=== PATIENT | male | born 1950 | race Caucasian/White ===

== ENCOUNTER 2018-10-27 11:52 | Emergency (ER) | payer MEDICARE ==
[2018-10-27] MEDS ORDERED: SODIUM CHLORIDE 0.9% 1000ML 1,000 ML IVS ONE (12:24)
--- NOTE | 2018-10-27 12:27 | ED.PDOC ---
History of Present Illness - General Chief Complaint: Neuro Symptoms/Deficits Stated Complaint: "rotten feeling" Time Seen by Provider: 10/27/18 12:13 Source: patient Exam Limitations: no limitations - History of Present Illness Initial Comments: pt has had dizziness today and 3 days ago. [place] well yesterday. Pt denies recent illness, SOB, Cough, Chest pain, or N/V. denies vertigo or syncope Timing/Duration: 4-6 hours Severity: severe Improving Factors: rest Worsening Factors: movement Associated Symptoms: weakness Allergies/Adverse Reactions: Allergies Amoxicillin [From Augmentin] Allergy (Verified 10/27/18 12:02) Clavulanic Acid [From Augmentin] Allergy (Verified 10/27/18 12:02) Review of Systems - Review of Systems Constitutional: States: diaphoresis, weakness. Denies: fever EENTM: States: no symptoms reported Respiratory: Denies: cough, orthopnea, short of breath Cardiology: Denies: chest pain, edema, syncope Gastrointestinal/Abdominal: Denies: abdominal pain, diarrhea, nausea, vomiting Genitourinary: States: no symptoms reported Musculoskeletal: States: no symptoms reported Skin: States: no symptoms reported Neurological: States: weakness. Denies: headache, numbness Endocrine: States: no symptoms reported Hematologic/Lymphatic: States: no symptoms reported Family Medical History - Family History Mother Family History: No Known Physical Exam - Physical Exam General Appearance: Alert, Anxious Eye Exam: bilateral normal Ears, Nose, Throat: hearing grossly normal Neck: supple, normal inspection Respiratory: lungs clear, normal breath sounds, no respiratory distress Cardiovascular/Chest: normal peripheral pulses, regular rate, rhythm, no edema Gastrointestinal/Abdominal: normal bowel sounds, non tender, soft Extremity: normal range of motion, normal inspection, no pedal edema 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 Copy, Patient Portal Self Enrollment
[2018-10-27 12:48] VITALS: TEMP 97.9
[2018-10-27 13:09] VITALS: BP 117/81; O2SAT 96
== END 2018-10-27 13:42 | disposition home or self-care (01) ==
LOC: ER 11:52
DX: R42 Dizziness and giddiness (principal); Z88.1 Allergy status to other antibiotic agents
CPT/HCPCS: 36415; 36416; 80053; 81001; 82948; 84484; 85025; 93005; J7030